=== PATIENT | female | born 1965 | race Hispanic/Latino ===

== ENCOUNTER 2017-06-09 22:23 | Emergency (ER) | payer SELFPAY ==
[2017-06-09] MEDS ORDERED: ONDANSETRON ODT 4 MG TAB ONE (23:49)
[2017-06-09] MEDS ORDERED: MORPHINE SULFATE 4 MG/1ML SYG ONE (23:50)
[2017-06-09] MEDS ORDERED: MORPHINE SULFATE 2 MG/ML 1ML SYG ONE (23:50)
== END 2017-06-10 00:17 | disposition home or self-care (01) ==
LOC: EDH 22:23
DX: K08.89 Other specified disorders of teeth and supporting structures (principal); E11.9 Type 2 diabetes mellitus without complications; E78.5 Hyperlipidemia, unspecified; I10 Essential (primary) hypertension; Z79.4 Long term (current) use of insulin
CPT/HCPCS: 96372; 99283; J2270